=== PATIENT | male | born 1955 | race Caucasian/White ===

== ENCOUNTER 2021-03-13 15:50 | Inpatient (IN) | payer MEDICARE ==
[~2021-03-13] VITALS: Ht 170.2 cm; Wt 71.7 kg
--- NOTE | 2021-03-13 16:02 | NUR ---
AT BEDSIDE FOR EVAL.
--- NOTE | 2021-03-13 16:04 | NUR ---
BIBRA 860 FOR CHRONIC LOW BACK PAIN RADIATING TO RT LEG. PT AAOX4, VSS. RR EVEN & UNLABORED. DENIES CP, SOB, DIZZINESS, N/V AT THIS TIME. WILL CONT TO MONITOR.
[2021-03-13] MEDS ORDERED: MORPHINE SULFATE INJ 4 MG/ML DISP.SYRIN ONE (16:18)
[2021-03-13] MEDS ORDERED: MORPHINE SULFATE INJ 2 MG/ML DISP.SYRIN IM ONE (16:30)
[2021-03-13 17:28] LABS: BASOPHILS % (AUTO) 0.3 % (0.0-2.0); EOSINOPHILS % (AUTO) 0.3 % (0.0-6.0); HEMATOCRIT 45 % (39-51); HEMOGLOBIN 15.2 g/dL (13.5-17.5); LYMPHOCYTES # (AUTO) 1.5 /CMM (0.8-4.8); MEAN CORPUSCULAR HGB CONC 34 g/dl (31.0-36.0); MEAN CORPUSCULAR VOLUME 98 fL (80-96); MONOCYTES # (AUTO) 0.6 /CMM (0.1-1.30); MONOCYTES % (AUTO) 7.2 % (2.0-12.0); NEUTROPHILS # (AUTO) 5.8 /CMM (1.8-8.9); NEUTROPHILS % (AUTO) 73.2 % (43.0-81.0); PLATELET COUNT (AUTO) 251 /CMM (150-450); RED BLOOD CELL COUNT(AUTO) 4.63 MIL/uL (4.5-6.0); WHITE BLOOD COUNT (AUTO) 7.9 K/uL (4.3-11.0)
--- NOTE | 2021-03-13 17:30 | NUR ---
PT TO RADIOLOGY DEPT VIA WHEELCHAIR
[2021-03-13 17:41] LABS: CALCIUM, SERUM 9.2 mg/dL (8.5-10.1); CREATININE 0.9 mg/dL (0.6-1.3); POTASSIUM 4.1 mmol/L (3.5-5.1)
[2021-03-13 17:47] LABS: ALBUMIN 3.8 g/dL (3.4-5.0); BILIRUBIN,TOTAL 0.6 mg/dL (0.2-1.0)
[2021-03-13] MEDS ORDERED: ONDANSETRON HCL/PF - ER 4 MG/2 ML VIAL IV ONE (20:00)
[2021-03-13] MEDS ORDERED: HYDROMORPHONE INJ 2 MG/ML DISP.SYRIN IV ONE (20:00)
[2021-03-13] MEDS ORDERED: DEXAMETHASONE SOD PHOSPHATE 10 MG/ML VIAL IV ONE (20:00)
--- NOTE | 2021-03-13 20:05 | NUR ---
covid swab sent
[2021-03-13] MEDS ORDERED: HYDROMORPHONE 1 MG/1 ML DISP.SYRIN ONE (20:09)
[2021-03-13] MEDS ORDERED: ONDANSETRON HCL/PF 4 MG/2 ML VIAL ONE (20:09)
[2021-03-13] MEDS ORDERED: DEXAMETHASONE SOD PHOSPHATE 10 MG/ML VIAL ONE (20:09)
[2021-03-13] MEDS ORDERED: MAG HYDROX/AL HYDROX/SIMETH 30 ML UDC PO PRN (20:30)
[2021-03-13] MEDS ORDERED: ZOLPIDEM TARTRATE 5 MG TABLET PO PRN (20:30)
[2021-03-13] MEDS ORDERED: ACETAMINOPHEN 325 MG TABLET PO PRN (20:30)
[2021-03-13] MEDS ORDERED: ONDANSETRON HCL/PF 4 MG/2 ML VIAL IVP PRN (20:30)
[2021-03-13] MEDS ORDERED: HYDROCODONE/APAP 5/325MG TABLET PO PRN (20:30)
[2021-03-13] MEDS ORDERED: Z GUARD REMEDY 2 OZ OINT TP PRN (20:30)
[2021-03-13] MEDS ORDERED: MAGNESIUM HYDROXIDE 30 ML UDC PO PRN (20:30)
--- NOTE | 2021-03-13 21:07 | NUR ---
CALL FROM LAB. RAPID COVID NEGATIVE.
--- NOTE | 2021-03-13 21:20 | NUR ---
MS 311-1
--- NOTE | 2021-03-13 21:41 | NUR ---
REPORT GIVEN TO MAURO RIBEIRO FOR MADELEINE
[2021-03-13 22:20] VITALS: BP 155/76
[2021-03-13] MEDS: CYCLOBENZAPRINE 10 MG TABLET PO SCH (23:57)
--- NOTE | 2021-03-14 | NUR ---
patient refused the DVT pump. Addendum: 03/14/21 at 0532 by GEMA TURNER RN patient refused the bed alarm
[2021-03-14] MEDS ORDERED: KETOROLAC TROMETHAMINE INJ 30 MG/ML VIAL IV PRN (01:00)
[2021-03-14] MEDS ORDERED: MORPHINE SULFATE INJ 2 MG/ML DISP.SYRIN IV PRN (01:00)
[2021-03-14] MEDS: CYCLOBENZAPRINE 10 MG TABLET PO SCH (05:00)
--- NOTE | 2021-03-14 05:32 | NUR ---
patient complained of difficulty urinating, voided 180ml. Bladder scanned= >[id number].
--- NOTE | 2021-03-14 05:45 | NUR ---
INFORMED MANAGER PSYCHIATRY KAREN RE: URINE RETENTION. WAITING FOR THE RESPONSE.
--- NOTE | 2021-03-14 06:41 | NUR ---
MS RN CLOSING NOTES: PATIENT IN BED, AWAKE. A/O X4. NO S/S OF DISTRESS NOTED. CALL LIGHT WITHIN REACH. BED ALAR ON REFUSED. BED IN LOWEST AND LOCKED POSITION. STILL WAITING FOR THE RESPONSE OF ULICES JONES, CHARGE NURSE AWARE.
[2021-03-14 06:42] LABS: CALCIUM, SERUM 9.2 mg/dL (8.5-10.1); CREATININE 0.9 mg/dL (0.6-1.3); MAGNESIUM 2.4 mg/dL (1.8-2.4)
[2021-03-14 06:46] LABS: BASOPHILS % (AUTO) 0.1 % (0.0-2.0); HEMATOCRIT 44 % (39-51); HEMOGLOBIN 15.1 g/dL (13.5-17.5); LYMPHOCYTES # (AUTO) 0.7 /CMM (0.8-4.8); LYMPHOCYTES % (AUTO) 7.6 % (20.0-44.0); MEAN CORPUSCULAR HGB CONC 35 g/dl (31.0-36.0); MEAN CORPUSCULAR VOLUME 98 fL (80-96); MONOCYTES # (AUTO) 0.1 /CMM (0.1-1.30); MONOCYTES % (AUTO) 1.6 % (2.0-12.0); NEUTROPHILS # (AUTO) 7.9 /CMM (1.8-8.9); NEUTROPHILS % (AUTO) 90.7 % (43.0-81.0); PLATELET COUNT (AUTO) 262 /CMM (150-450); RED BLOOD CELL COUNT(AUTO) 4.47 MIL/uL (4.5-6.0); WHITE BLOOD COUNT (AUTO) 8.7 K/uL (4.3-11.0)
--- NOTE | 2021-03-14 07:38 | NUR ---
MS RN OPENING NOTES PATIENT IS A/O X4 RESTING IN BED. PATIENT IS BREATHING EVENLY AND UNLABORED ON ROOM AIR. NO SX OF DISTRESS NOTED. PATIENT HAS RFA #18 GAUGE IV PATENT AND INTACT. PATIENT IS ABLE TO AMBULATE WITH ASSIST. SAFETY MEASURES ARE IN PLACE. BED LOW LOCKED AND CALL LIGHT WITHIN REACH. WILL CONTINUE TO MONITOR.
[2021-03-14] MEDS ORDERED: ACET1TAB25 PO (07:49)
[2021-03-14] MEDS ORDERED: ATOR10TA PO (07:49)
[2021-03-14] MEDS ORDERED: ERGO500014 PO (07:49)
[2021-03-14] MEDS ORDERED: BACL10TA PO (07:49)
[2021-03-14] MEDS ORDERED: POLY15DR40 EACHEYE (07:49)
[2021-03-14] MEDS ORDERED: ZOLP5TAB2 PO (07:49)
[2021-03-14 09:22] VITALS: BP 128/84
--- NOTE | 2021-03-14 09:47 | NUR ---
MS RN AMA NOTE PATIENT IS REQUESTING TO LEAVE AMA. PATIENT STATED HIS BACK PAIN AND ABDOMINAL PAIN HAD SIGNIFICANTLY IMPROVED. ASSESS HIS ABDOMEN WHICH WAS SOFT NON TENDER. EXPLAINED RISKS OF LEAVING AMA. PATIENT STATED HE NEEDED TO LEAVE. PATIENT IS BREATHING EVENLY AND UNLABORED ON ROOM AIR. PATIENT WAS ABLE TO AMBULATE WITH CANE. PATIENT SIGNED AMA FORM. IV AND ID BAND WAS REMOVED FROM PATIENT. ALL BELONGINGS WERE TAKEN WITH THE PATIENT. PATIENT LEFT IN STABLE CONDITION.
== END 2021-03-14 09:45 | disposition left against medical advice (07) | DRG 552 ==
LOC: ER 15:54 → MED 22:00
PROVIDERS: ADMIT Nurse Practitioner Acute Care
DX: M51.25 Other intervertebral disc displacement, thoracolumbar region (principal); Z20.822 Contact with and (suspected) exposure to COVID-19; I10 Essential (primary) hypertension; Z98.890 Other specified postprocedural states; G89.29 Other chronic pain; M25.78 Osteophyte, vertebrae; M48.061 Spinal stenosis, lumbar region without neurogenic claudication; N28.9 Disorder of kidney and ureter, unspecified; M43.10 Spondylolisthesis, site unspecified
CPT/HCPCS: 36415; 72148-TC; 80048-TC; 80053-TC; 80061-TC; 83735-TC; 84100-TC; 85025-TC; 85610-TC; 85730-TC; C9803; G0378; J1100; J1170; J2270; J2405

== ENCOUNTER 2021-04-18 04:15 | Inpatient (IN) | payer MEDICARE ==
[~2021-04-18] VITALS: Ht 175.3 cm; Wt 71.7 kg
[~2021-04-18 04:15] MED LIST: ACET1TAB25 PO; ATOR10TA PO; BACL10TA PO; ERGO500093 PO; POLY15DR40 EACHEYE; ZOLP5TAB2 PO
[2021-04-18] MEDS ORDERED: KETOROLAC TROMETHAMINE 15 MG/ML VIAL ONE (04:27)
[2021-04-18] MEDS ORDERED: CYCLOBENZAPRINE 10 MG TABLET ONE (04:28)
[2021-04-18] MEDS ORDERED: HYDROMORPHONE 1 MG/1 ML DISP.SYRIN ONE (04:28)
[2021-04-18] MEDS ORDERED: KETOROLAC TROMETHAMINE INJ 30 MG/ML VIAL IV ONE (04:30)
[2021-04-18] MEDS ORDERED: HYDROMORPHONE 1 MG/1 ML DISP.SYRIN IV ONE ×2 (04:30→05:30)
[2021-04-18] MEDS ORDERED: CYCLOBENZAPRINE 10 MG TABLET PO ONE (04:30)
[2021-04-18] MEDS ORDERED: HYDROMORPHONE INJ 2 MG/ML DISP.SYRIN ONE (05:28)
[2021-04-18] MEDS ORDERED: CYCL5TAB PO (05:59)
[2021-04-18] MEDS ORDERED: FAMO-131 PO (09:39)
[2021-04-18] MEDS ORDERED: ACET-868 PO (09:39)
[2021-04-18] MEDS ORDERED: ACET-2605 PO (09:39)
[2021-04-18] MEDS ORDERED: LISI-768 PO (09:39)
[2021-04-18] MEDS: CYCLOBENZAPRINE 10 MG TABLET PO SCH ×2 (12:20→16:14)
[2021-04-18] MEDS: MORPHINE SULFATE INJ 2 MG/ML DISP.SYRIN IV PRN ×2 (12:20→16:15)
[2021-04-18] MEDS ORDERED: HYDROCODONE/APAP 5/325MG TABLET PO PRN (12:30)
[2021-04-18] MEDS ORDERED: ONDANSETRON HCL/PF 4 MG/2 ML VIAL IVP PRN (12:30)
[2021-04-18] MEDS ORDERED: Z GUARD REMEDY 2 OZ OINT TP PRN (12:30)
[2021-04-18] MEDS ORDERED: MAG HYDROX/AL HYDROX/SIMETH 30 ML UDC PO PRN (12:30)
[2021-04-18] MEDS ORDERED: MAGNESIUM HYDROXIDE 30 ML UDC PO PRN (12:30)
[2021-04-18] MEDS ORDERED: ZOLPIDEM TARTRATE 5 MG TABLET PO PRN (12:30)
[2021-04-18] MEDS ORDERED: ACETAMINOPHEN 325 MG TABLET PO PRN (12:30)
[2021-04-18] MEDS ORDERED: ATORVASTATIN 10 MG TABLET PO SCH (18:00)
[2021-04-18 20:17] VITALS: BP 146/74
[2021-04-18] MEDS ORDERED: LISINOPRIL (5MG) 5 MG TABLET PO SCH (22:00)
[2021-04-18] MEDS: BACLOFEN (10 MG) 10 MG TABLET PO PRN (23:06)
[2021-04-18] MEDS: HYDROCODONE/APAP 10/325MG TABLET PO PRN (23:13)
[2021-04-19] MEDS: HYDROCODONE/APAP 10/325MG TABLET PO PRN ×3 (03:48→08:10)
[2021-04-19 06:33] LABS: BASOPHILS % (AUTO) 0.2 % (0.0-2.0); EOSINOPHILS % (AUTO) 1.3 % (0.0-6.0); HEMATOCRIT 45 % (39-51); HEMOGLOBIN 15.1 g/dL (13.5-17.5); LYMPHOCYTES # (AUTO) 2.5 /CMM (0.8-4.8); LYMPHOCYTES % (AUTO) 26.4 % (20.0-44.0); MEAN CORPUSCULAR HGB CONC 34 g/dl (31.0-36.0); MEAN CORPUSCULAR VOLUME 99 fL (80-96); MONOCYTES # (AUTO) 0.8 /CMM (0.1-1.30); MONOCYTES % (AUTO) 8.1 % (2.0-12.0); PLATELET COUNT (AUTO) 258 /CMM (150-450); RED BLOOD CELL COUNT(AUTO) 4.52 MIL/uL (4.5-6.0); WHITE BLOOD COUNT (AUTO) 9.3 K/uL (4.3-11.0)
[2021-04-19 06:56] LABS: CALCIUM, SERUM 8.4 mg/dL (8.5-10.1); CREATININE 0.9 mg/dL (0.6-1.3); MAGNESIUM 2.5 mg/dL (1.8-2.4); PHOSPHORUS 4.1 mg/dL (2.5-4.9); POTASSIUM 3.5 mmol/L (3.5-5.1)
[2021-04-19 07:06] LABS: THYROID STIMULATING HORMONE 2.091 uIU/mL (0.358-3.74)
[2021-04-19] MEDS ORDERED: PANTOPRAZOLE 40 MG TABLET.DR PO SCH (07:30)
[2021-04-19 08:00] VITALS: BP 100/74
[2021-04-19] MEDS: CYCLOBENZAPRINE 10 MG TABLET PO SCH ×2 (08:09→08:24)
[2021-04-19] MEDS: BACLOFEN (10 MG) 10 MG TABLET PO PRN (08:17)
[2021-04-19] MEDS: MORPHINE SULFATE INJ 2 MG/ML DISP.SYRIN IV PRN (09:30)
== END 2021-04-19 10:15 | disposition home or self-care (01) | DRG 552 ==
LOC: ER 04:15 → TRANSITION 08:04 → MED 09:36
DX: M51.26 Other intervertebral disc displacement, lumbar region (principal); G89.29 Other chronic pain; M43.16 Spondylolisthesis, lumbar region; I10 Essential (primary) hypertension; Z20.822 Contact with and (suspected) exposure to COVID-19
CPT/HCPCS: 36415; 80048-TC; 80061-TC; 83735-TC; 84100-TC; 84443-TC; 85025-TC; 87081-TC; 97112-TC; 97116-TC; 97530-TC; C9803; G0378; J1170; J1885; J2270